=== PATIENT | male | born 1970 ===

== ENCOUNTER 2023-10-17 09:00 | Day surgery (SDC) | payer OTHER | END 2023-10-17 15:50 | disposition home or self-care (01) | LOC: AMB-ENDOS 09:00 | PROVIDERS: ATTEND Surgery | DX: C18.7 Malignant neoplasm of sigmoid colon (principal); K63.5 Polyp of colon; K57.30 Diverticulosis of large intestine without perforation or abscess without bleeding; D12.5 Benign neoplasm of sigmoid colon; R19.4 Change in bowel habit; Z20.822 Contact with and (suspected) exposure to COVID-19 ==

== ENCOUNTER 2023-12-16 09:15 | Inpatient (IN) | payer OTHER ==
[~2023-12-16] VITALS: Ht 182.9 cm; Wt 105.2 kg
[2023-12-16] MEDS ORDERED: COZAAR100 MG PO (10:06)
[2023-12-16] MEDS ORDERED: METFORMIN HCL500 M3 (10:06)
[2023-12-16] MEDS ORDERED: TENORMIN50 M1 PO (10:06)
[2023-12-16] MEDS ORDERED: LIPITOR20 MG PO (10:06)
[2023-12-16 10:39] LABS: URINE APPEARANCE Clear; URINE BILIRRUBIN Negative (NEGATIVE); URINE BLOOD Negative; URINE COLOR Yellow; URINE GLUCOSE Negative (NEGATIVE); URINE LEUKOCYTE Negative; URINE NITRATE Negative; URINE PROTEIN Negative (NEGATIVE); URINE UROBILINOGEN 0.2 E.U./dl
[2023-12-16 10:44] LABS: URINE RBC 3.4 uL (0.0-20.8)
[2023-12-16 11:12] LABS: PROTHROMBIN TIME 10.5 SECONDS (9.0-11.5)
[2023-12-16 11:13] LABS: PARTIAL THROMBOPLASTIN TIME 28.3 SECONDS (22.0-34.0)
[2023-12-16 11:18] LABS: URINE BACTERIA 1.2 uL (0.0-1933); URINE EPITHELIAL CELLS 0.9 uL (0.0-38.8); URINE WBC 0.1 uL (0.0-23.2)
[2023-12-22] MEDS ORDERED: CLONAZEPAM1 MG (08:47)
[2023-12-22] MEDS ORDERED: MONTELUKAST SOD10 MG (08:47)
[2023-12-22] MEDS ORDERED: MIRTAZAPINE15 MG (08:47)
[2023-12-22] MEDS ORDERED: QUETIAPINE FUM300 MG (08:47)
[2023-12-22] MEDS ORDERED: METRONIDAZOLE/SODIUM CHLORIDE 500 MG/100 ML PIGGYBACK IV ONE (09:25)
[2023-12-22] MEDS ORDERED: CEFTRIAXONE SODIUM 2,000 MG VIAL ONE (09:25)
[2023-12-22] MEDS ORDERED: LIDOCAINE HCL 1%/Epi 20ML VIAL IJ ONE ×2 (11:21→11:23)
[2023-12-22] MEDS ORDERED: BUPIVACAINE HCL/PF 0.5% 1ML ONE (11:21)
[2023-12-22] MEDS ORDERED: OxyCODONE HCL 5 MG TABLET (ROXICODONE) PO PRN (12:15)
[2023-12-22] MEDS ORDERED: DEXTROSE 50 % IN WATER 0.5 G/ML DISP.SYRIN IV PRN ×2 (12:15→15:30)
[2023-12-22] MEDS ORDERED: 0.9 % SODIUM CHLORIDE 1,000 ML IV SCH (12:15)
[2023-12-22] MEDS ORDERED: ONDANSETRON HCL 2 MG/ML VIAL IV PRN (12:15)
[2023-12-22] MEDS ORDERED: MORPHINE SULFATE 4 MG/ML CARTRIDGE IV PRN (12:15)
[2023-12-22] MEDS ORDERED: LIDOCAINE HCL/EPINEPHRINE 10 ML VIAL IJ SCH (12:45)
[2023-12-22] MEDS ORDERED: BUPIVACAINE HCL/PF 0.5% 1ML IJ SCH (12:45)
[2023-12-22] MEDS ORDERED: CEFTRIAXONE SODIUM 2,000 MG VIAL IV SCH (12:45)
[2023-12-22] MEDS ORDERED: METRONIDAZOLE/SODIUM CHLORIDE 500 MG/100 ML PIGGYBACK IV SCH ×2 (12:45→17:00)
[2023-12-22] MEDS ORDERED: HYOSCYAMINE SULFATE 0.125 MG TAB.SUBL SL SCH (13:00)
[2023-12-22] MEDS ORDERED: ACETAMINOPHEN 500 MG GEL..CAP PO SCH (14:00)
[2023-12-22] MEDS ORDERED: SUGAMMADEX SODIUM 200 MG/2 ML VIAL IV ONE (14:23)
[2023-12-22] MEDS ORDERED: SUGAMMADEX SODIUM 200 MG/2 ML VIAL IV SCH (15:00)
[2023-12-22] MEDS ORDERED: INSULIN LISPRO 1,000 UNIT/10 ML UNITS SUBCUTANEO PRN (15:30)
[2023-12-22] MEDS ORDERED: INSULIN LISPRO 1,000 UNIT/10 ML UNITS SUBCUTANEO SCH (16:00)
[2023-12-22] MEDS ORDERED: POLYETHYLENE GLYCOL 3350 17 GM BLIST.PACK PO SCH (17:00)
[2023-12-22] MEDS ORDERED: GABAPENTIN 300 MG CAPSULE PO SCH (17:00)
[2023-12-22] MEDS ORDERED: ATORVASTATIN CALCIUM 20 MG TABLET PO SCH (17:00)
[2023-12-22] MEDS ORDERED: ENALAPRILAT DIHYDRATE 2.5 MG/2 ML VIAL IV ONE (18:09)
[2023-12-22 19:27] LABS: HEMATOCRIT 43.1 % (39.0-48.0); HEMOGLOBIN 14.6 g/dL (13-16.00); MEAN CELL VOLUME 91.4 fL (80.0-100.00); MEAN CORPUSCULAR HEMOGLOBIN 30.9 pg (27.00-32.0); MEAN CORPUSCULAR HGB CONC 33.9 g/dl (32.0-36.0); PLATELET COUNT 186 K/uL (150-450); RED BLOOD COUNT 4.72 M/uL (4.00-6.00); RED CELL DISTRIBUTION WIDTH 12.4 % (11.5-14.5)
[2023-12-22 19:48] LABS: ALBUMIN 3.6 gm/dL (3.4-5.0); CALCIUM 8.7 mg/dL (8.5-10.1); CREATININE SERUM 0.83 mg/dL (0.70-1.30); GFR 96.19; MAGNESIUM 1.8 mg/dL (1.8-2.4); PHOSPHOROUS 2.8 mg/dL (2.5-4.9); POTASSIUM 4.23 mEq/L (3.5-5.1)
[2023-12-22] MEDS ORDERED: FAMOTIDINE/PF 20 MG/2 ML VIAL IV PUSH SCH (21:00)
[2023-12-23 05:30] LABS: HEMATOCRIT 40.5 % (39.0-48.0); HEMOGLOBIN 13.8 g/dL (13-16.00); MEAN CELL VOLUME 91.1 fL (80.0-100.00); MEAN CORPUSCULAR HGB CONC 34.1 g/dl (32.0-36.0); PLATELET COUNT 193 K/uL (150-450); RED BLOOD COUNT 4.44 M/uL (4.00-6.00); RED CELL DISTRIBUTION WIDTH 12.5 % (11.5-14.5)
[2023-12-23 05:50] LABS: ALBUMIN 3.3 gm/dL (3.4-5.0); CALCIUM 8.6 mg/dL (8.5-10.1); CREATININE SERUM 0.81 mg/dL (0.70-1.30); GFR 98.93; MAGNESIUM 1.8 mg/dL (1.8-2.4); PHOSPHOROUS 3.1 mg/dL (2.5-4.9); POTASSIUM 4.55 mEq/L (3.5-5.1)
[2023-12-23] MEDS ORDERED: LOSARTAN POTASSIUM 100 MG TABLET PO SCH (09:00)
[2023-12-23] MEDS ORDERED: ATENOLOL 50 MG TABLET PO SCH (09:00)
[2023-12-23] MEDS ORDERED: ENOXAPARIN SODIUM 40 MG/0.4 ML SYRINGE SUBCUTANEO SCH (17:00)
[2023-12-24] MEDS ORDERED: ENOXAPARIN SODIUM 40 MG/0.4 ML SYRINGE SUBCUTANEO SCH (09:00)
[2023-12-25] MEDS ORDERED: NEURONTIN300 MG PO (08:05)
[2023-12-25] MEDS ORDERED: ACETAMINOPHEN500 M2 PO (08:05)
== END 2023-12-25 14:09 | disposition home or self-care (01) | DRG 331 ==
LOC: O/R 12-22 06:44 → SURH 12-22 08:15 → SURG 12-22 15:26
PROVIDERS: ADMIT Surgery; ATTEND Surgery
PROC: 0DBP4ZZ Excision of Rectum, Percutaneous Endoscopic Approach (ICD-10-PCS; 2023-12-22)
PROC: 07BJ4ZZ Excision of Left Inguinal Lymphatic, Percutaneous Endoscopic Approach (ICD-10-PCS; 2023-12-22)
PROC: 0DJD8ZZ Inspection of Lower Intestinal Tract, Via Natural or Artificial Opening Endoscopic (ICD-10-PCS; 2023-12-22)
PROC: 0DTN4ZZ Resection of Sigmoid Colon, Percutaneous Endoscopic Approach (ICD-10-PCS; principal; 2023-12-22 08:15)
DX: D12.5 Benign neoplasm of sigmoid colon (principal); Z20.822 Contact with and (suspected) exposure to COVID-19